=== PATIENT | male | born 1960 | race Caucasian/White ===

== ENCOUNTER 2022-07-31 08:03 | Day surgery (SDC) | payer BC ==
[2022-07-30 09:49] VITALS: BMI 42.5
[2022-07-31] MEDS ORDERED: EPINEPHrine 1 MG/ML AMP ONE (11:39)
[2022-07-31] MEDS ORDERED: SUGAMMADEX SODIUM 200 MG/2 ML VIAL ONE (11:40)
[2022-07-31] MEDS ORDERED: Midazolam HCl 2 mg/2 ml Vial ONE (11:42)
[2022-07-31] MEDS ORDERED: PROPOFOL 20 ML ONE ×2 (11:42→12:17)
[2022-07-31] MEDS ORDERED: Dexamethasone 20 MG/5 ML VIAL ONE (11:42)
[2022-07-31] MEDS ORDERED: Dexamethasone 4 mg/ml Vial ONE (11:42)
[2022-07-31] MEDS ORDERED: Ondansetron PF 4 MG/2 ML Vial ONE (11:42)
[2022-07-31] MEDS ORDERED: Rocuronium Bromide 10 MG/ML (10ML VIAL) ONE (11:42)
[2022-07-31] MEDS ORDERED: Fentanyl 100 MCG/2 ML VIAL ONE (11:43)
[2022-07-31] MEDS ORDERED: Lidocaine 2% PF 5 ML VIAL ONE (11:43)
== END 2022-07-31 14:00 | disposition home or self-care (01) ==
LOC: CSHSDC 08:03
PROVIDERS: ATTEND Otolaryngology Otolaryngic Allergy
PROC: 0CBM8ZX Excision of Pharynx, Via Natural or Artificial Opening Endoscopic, Diagnostic (ICD-10-PCS; principal; 2022-07-31)
DX: C09.9 Malignant neoplasm of tonsil, unspecified (principal); I10 Essential (primary) hypertension; E66.01 Morbid (severe) obesity due to excess calories; Z68.41 Body mass index [BMI] 40.0-44.9, adult; Z79.899 Other long term (current) drug therapy
CPT/HCPCS: 88305; 88331; 88342; J0171; J1100; J2001; J2250; J2405; J2704; J3010